=== PATIENT | female | born 1935 | race Caucasian/White ===

== ENCOUNTER 2022-01-14 00:22 | Emergency (ER) | payer MEDICARE, OTHER ==
[~2022-01-14] VITALS: Ht 154.9 cm; Wt 61.0 kg
[~2022-01-14 00:22] MED LIST: ALPR2TAB7 PO; DULO30CA52 PO; FELO10TA44 PO; LIDO35.4 TP; PRIM50TA5 PO
[2022-01-14] MEDS ORDERED: TETanus/Pertussis (Acell)/Diphther VAC/PF (Tdap-Adult) 0.5ml syringe IMVAC ONE (01:45)
--- NOTE | 2022-01-14 02:00 | NUR ---
circular Pressure ulcer on left heel measures 5cm.
--- NOTE | 2022-01-14 02:38 | NUR ---
WOUND IRR WITH [facility]
[2022-01-14 04:00] VITALS: BP 168/83
--- NOTE | 2022-01-14 07:05 | NUR ---
PT IS A TRANSPORT WAIT. ATTEMPTED TO CALL FAMILY AT PHONE #s PROVIDED IN PT'S CHART . PHONE #s x2 ARE NOT IN SERVICE. LICENSED PROFESSIONAL COUNSELOR PAGED FOR ASSISTANCE IN GETTING PT HOME
--- NOTE | 2022-01-14 09:36 | NUR ---
SOCIAL SERVICE/CASE MANAGEMENT HAVE BEEN PAGED A 2ND TIME FOR ASSISTANCE IN GETTING PT HOME AND CONTACTING FAMILY
== END 2022-01-14 13:30 | disposition home or self-care (01) ==
LOC: ER 00:23
DX: S01.111A Laceration without foreign body of right eyelid and periocular area, initial encounter (principal); L97.429 Non-pressure chronic ulcer of left heel and midfoot with unspecified severity; S09.90XA Unspecified injury of head, initial encounter; W19.XXXA Unspecified fall, initial encounter; Y93.89 Activity, other specified; Y92.098 Other place in other non-institutional residence as the place of occurrence of the external cause; Y99.8 Other external cause status
CPT/HCPCS: 70450; 72125; 90471; 90715; 99285; A6449